=== PATIENT | female | born 2000 | race Hispanic/Latino ===

== ENCOUNTER 2020-01-11 11:35 | Outpatient (CLI) | payer BC, OTHER ==
[2020-01-11 19:16] LABS: SARS-CoV-2 MS2 Positive; SARS-CoV-2 N Gene Negative; SARS-CoV-2 S Gene Negative; SARS-CoV-2 by NAA Not Detected (NotDetected); SARS-CoV-2 orf1ab Negative
== END 2020-01-11 11:36 | disposition home or self-care (01) ==
LOC: LABBT 11:35
PROVIDERS: ATTEND Obstetrics & Gynecology
DX: Z20.828 Contact with and (suspected) exposure to other viral communicable diseases (principal)
CPT/HCPCS: 87635; U0003

== ENCOUNTER 2023-08-25 02:20 | Emergency (ER) | payer BC ==
[2023-08-25] MEDS ORDERED: Acetaminophen 325 MG TAB ONE (03:33)
[2023-08-25 03:59] LABS: #Basophils Less than 0.03 10x3/uL (0.0-0.2); #Eosinphils Less than 0.03 10x3/uL (0.0-0.7); %Basophils 0.1 % (0.0-1.0); %Lymphocytes 11.1 % (21.0-51.0); %Monocytes 15.6 % (0.0-10.0); %Neutrophils 72.7 % (42.0-75.0); Hematocrit 37.1 % (36.0-47.0); Hemoglobin 12.7 g/dL (12.0-16.0); Mean Corpuscular HGB CONC 34.2 g/dL (32.0-36.0); Mean Corpuscular Hemoglobin 29.3 pg (27.0-31.0); Mean Corpuscular Volume 85.5 fL (78.0-98.0); Mean Platelet Volume 9.7 fL (7.4-10.4); Platelet Count 219 10x3/uL (130-400); RBC Distribution Width 13.6 % (11.5-14.5); Red Blood Cell (RBC) Count 4.34 mill/uL (4.20-5.40)
[2023-08-25] MEDS ORDERED: Lidocaine Viscous Sol 2% 15 ml UD Cup SSP SCH (04:30)
[2023-08-25 04:34] LABS: BHCG - Serum Negative (NEGATIVE); Pregs Control Background? CLEAR/WHITE (CLR/WHITE); Pregs Control Bar Appear? YES (CONTROL BAR)
[2023-08-25 04:50] LABS: ALT (SGPT) 16 U/L (8-55); AST (SGOT) 18 U/L (5-34); Albumin 3.7 g/dL (3.5-5.0); Alkaline Phosphatase 60 U/L (40-110); Anion Gap 13 mmol/L (10-20); BUN (Urea Nitrogen) 10 mg/dL (7.0-18.7); Bilirubin, Total 0.3 mg/dL (0.2-1.2); Calc. Creatinine Clearance 0 mL/min (70-130); Calcium 8.8 mg/dL (7.8-10.44); Carbon Dioxide 20 mmol/L (22-29); Chloride 104 mmol/L (98-107); Estimated GFR 118; Globulin 3.5 g/dL (2.4-3.5); Glucose 104 mg/dL (70-105); Potassium 3.4 mmol/L (3.5-5.1); Protein, Total 7.2 g/dL (6.0-8.3); Sodium 134 mmol/L (136-145)
[2023-08-25] MEDS ORDERED: valACYclovir 500 MG TAB ONE (05:56)
[2023-08-25 11:46] LABS: Syphilis Antibody Nonreactive (Nonreactive)
[2023-08-30 18:10] LABS: HIV-1 Quantitative, RNA PCR <20 copies/mL (.)
== END 2023-08-25 06:16 | disposition home or self-care (01) ==
LOC: ERS 02:20
DX: K12.1 Other forms of stomatitis (principal); K04.7 Periapical abscess without sinus; Z55.0 Illiteracy and low-level literacy; K13.79 Other lesions of oral mucosa
CPT/HCPCS: 80053; 83605; 84703; 85025; 86780; 87040; 87252; 87536; 93005; 99282